=== PATIENT | male | born 1965 | race Two or more races ===

== ENCOUNTER 2021-06-05 13:57 | Emergency (ER) | payer SELFPAY ==
[~2021-06-05] VITALS: Ht 167.6 cm; Wt 81.6 kg
[2021-06-05 14:15] VITALS: BP 164/111
[2021-06-05] MEDS ORDERED: cloNIDine HCL 0.1 MG TAB PO ONE (15:00)
== END 2021-06-05 15:42 ==
LOC: ER 13:57
DX: I16.0 Hypertensive urgency (principal); F17.210 Nicotine dependence, cigarettes, uncomplicated; F12.10 Cannabis abuse, uncomplicated